=== PATIENT | female | born 1935 | race Caucasian/White ===

== ENCOUNTER 2017-08-30 08:43 | Day surgery (SDC) | payer MEDICARE ==
[2017-08-30] MEDS ORDERED: VERSED 5 MG/5 ML IV ONE (08:44)
[2017-08-30] MEDS ORDERED: DEMEROL 50 MG IV ONE (08:44)
[2017-08-30] MEDS ORDERED: XYLOCAINE 1% HCL 20 ML MDV ONE (09:02)
[2017-08-30] MEDS ORDERED: Sodium Chloride 0.9% 1000 ML 1,000 ML ONE (09:02)
[2017-08-30] MEDS ORDERED: MINERAL OIL LIGHT 10 ML FOR SURGERY ONE (09:03)
[2017-08-30] MEDS ORDERED: Lactated Ringers 1,000 ML IV ONE (10:04)
[2017-08-30] MEDS ORDERED: Lactated Ringers 1,000 ML IV SCH (10:30)
[2017-08-30] MEDS ORDERED: BACIGUENT 30 GM ONE (11:05)
[2017-08-30 12:48] VITALS: O2SAT 95
[2017-08-30 13:02] VITALS: BP 156/66; PULSE 70
--- NOTE | 2017-08-30 15:29 | HP ---
DATE OF SURGERY: 08/30/2017 ADMISSION DIAGNOSIS: Lesion left lower extremity. ANTICIPATED PROCEDURE: Excision, split thickness skin grafting. HISTORY OF PRESENT ILLNESS: PAST MEDICAL HISTORY: Asthma, Daniels's esophagus. ALLERGIES: PENICILLIN. MEDICATIONS: Synthroid, Singulair, Bystolic, Plavix. PAST SURGICAL HISTORY: Cholecystectomy, hysterectomy, heart stents, pacemaker, pancreas surgery i.e. Whipple. SOCIAL HISTORY: Negative. FAMILY HISTORY: Negative. PHYSICAL EXAMINATION: VITAL SIGNS: Normal. CHEST: Clear. COR: Regular. ABDOMEN: No palpable organomegaly or mass. IMPRESSION: Lesion left lower extremity. PLAN: Excision and skin grafting.
--- NOTE | 2017-08-30 15:36 | OP ---
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 POSTOPERATIVE DIAGNOSIS: PROCEDURE: Elliptical excision 7 x 3 x 3 cm encompassing 4 cm mass in toto with primary closure. SURGEON: Storm Morrison M.D. ANESTHESIA: Local IV sedation. COMPLICATIONS: None. CONDITION: Stable. INDICATION: A patient requiring excision of a mass that is probably malignant. DESCRIPTION OF PROCEDURE: Taken to surgery. IV sedation 20 minutes was monitored. Oximetry was kept over 90%. Comfort level satisfactory. 1% lidocaine was also used. Elliptical excision down to and including a small portion of the fascia. This was elliptical 7 x 3 x 3 encompassing a 4 x 2 cm mass. It was totally freed. It was mobilized slightly and approximated with 3 deep vertical mattress sutures #2 Prolene and then 5 small sutures. Sterile dressing applied. The patient tolerated the procedure satisfactory. Pathology pending.
== END 2017-08-30 13:15 | disposition home or self-care (01) ==
LOC: SDC 08:43
PROVIDERS: ATTEND Surgery
PROC: 0JBP0ZZ Excision of Left Lower Leg Subcutaneous Tissue and Fascia, Open Approach (ICD-10-PCS; principal; 2017-08-30)
DX: C44.709 Unspecified malignant neoplasm of skin of left lower limb, including hip (principal); J45.909 Unspecified asthma, uncomplicated; K22.70 Barrett's esophagus without dysplasia
CPT/HCPCS: J2175; J2250; A9270-GY